=== PATIENT | female | born 1950 ===

== ENCOUNTER 2022-07-05 06:00 | Outpatient (RCR) | payer MEDICARE, OTHER, SELFPAY | END 2022-07-31 23:59 | disposition home or self-care (01) | LOC: SPT 06:00 | PROVIDERS: Family Provider Internal Medicine; Visit Provider Nurse Practitioner Family | DX: N64.4 Mastodynia (principal); C50.412 Malignant neoplasm of upper-outer quadrant of left female breast | CPT/HCPCS: 97162 ==

== ENCOUNTER 2022-08-01 06:00 | Outpatient (RCR) | payer MEDICARE, OTHER, SELFPAY | END 2022-08-30 23:59 | disposition home or self-care (01) | LOC: SPT 06:00 | PROVIDERS: PCP Internal Medicine; Visit Provider Nurse Practitioner Family | DX: N64.4 Mastodynia (principal); Z98.890 Other specified postprocedural states | CPT/HCPCS: 97140 ==

== ENCOUNTER 2023-04-12 08:59 | Outpatient (RCR) | payer MEDICARE, OTHER, SELFPAY | END 2023-04-30 23:59 | disposition home or self-care (01) | LOC: SPT 08:59 | PROVIDERS: Visit Provider Nurse Practitioner Family | DX: N64.4 Mastodynia (principal); Z85.3 Personal history of malignant neoplasm of breast | CPT/HCPCS: 97161 ==